=== PATIENT | female | born 1985 | race Caucasian/White ===

== ENCOUNTER 2020-08-11 16:18 | Emergency (ER) | payer MEDICAID ==
[~2020-08-11] VITALS: Ht 149.9 cm; Wt 61.2 kg
[2020-08-11 16:23] VITALS: BP 124/71
--- NOTE | 2020-08-11 16:32 | NUR ---
Patient ambulated with steady gait to bed 8.
--- NOTE | 2020-08-11 17:00 | NUR ---
35 YEAR OLD FEMALE COMPLAINS OF ABDOMINAL CRAMPING X 4 DAYS. PT STATES THAT SHE IS 7 WEEKS . PT DENIES ANY TISSUE DISCHARGE, DENIES DIZZINESS. PT AOX4, BREATHING EVEN AND UNLABORED, SKIN WARM AND DRY. BED IN LOWEST POSITION, LOCKED, BED RAIL UPX1. PMH - DENIES ALLERGIES - NKA
[2020-08-11 17:10] LABS: BASOPHILS # (AUTO) 0.2 K/uL (0.00-0.22); BASOPHILS % (AUTO) 2.2 % (0.0-2.0); EOSINOPHILS # (AUTO) 0.1 K/uL (0-0.4); EOSINOPHILS % (AUTO) 1.1 % (0.0-4.0); HEMATOCRIT 37.9 % (36-48); HEMOGLOBIN 12.8 g/dL (12.0-16.0); LYMPHOCYTES # (AUTO) 1.9 K/uL (2.5-16.5); LYMPHOCYTES % (AUTO) 25.4 % (20.5-51.1); MEAN CORPUSCULAR HEMOGLOBIN 29 pg (27-31); MEAN CORPUSCULAR HGB CONC 34 g/dL (33-37); MEAN CORPUSCULAR VOLUME 86.6 fL (80-94); MONOCYTES # (AUTO) 0.5 K/uL (0.8-1.0); MONOCYTES % (AUTO) 6.5 % (1.7-9.3); NEUTROPHILS # (AUTO) 4.9 K/uL (1.8-7.7); NEUTROPHILS % (AUTO) 64.8 % (42.2-75.2); PLATELET COUNT (AUTO) 239 K/uL (140-450); RED BLOOD CELL COUNT(AUTO) 4.38 MIL/uL (4.20-5.40); RED CELL DISTRIBUTION WIDTH 13.8 % (11.6-13.7); WHITE BLOOD COUNT (AUTO) 7.5 K/uL (4.8-10.8)
[2020-08-11 17:30] LABS: APPEARANCE,URINE SL CLOUDY (CLEAR); BILIRUBIN,URINE NEGATIVE (NEGATIVE); BLOOD, URINE 3+ (NEGATIVE); COLOR,URINE RED (YELLOW); LEUKOCYTE ESTERASE ,URINE NEGATIVE (NEGATIVE); NITRITE, URINE NEGATIVE (NEGATIVE); PH,URINE 6.5 (5.0-9.0); UGLUCOSE NEGATIVE (NEGATIVE)
[2020-08-11 17:52] LABS: RBC,URINE >100 /HPF (0-5); WBC,URINE 0-5 /HPF (0-5)
--- NOTE | 2020-08-11 18:07 | NUR ---
PT ALERT AND AWAKE, BREATHING EVEN AND UNLABORED. NO DISTRESS NOTED.
[2020-08-11 18:53] VITALS: BP 124/71
--- NOTE | 2020-08-11 18:53 | NUR ---
Patient discharged with v/s stable. Written and verbal after care instructions about threatened miscarriage given and explained. Patient verbalized understanding. Ambulatory with steady gait. All questions addressed prior to discharge. Advised to follow up with PMD.
== END 2020-08-11 18:53 | disposition home or self-care (01) ==
LOC: MED 16:18
DX: O20.0 Threatened abortion (principal)
CPT/HCPCS: 36415; 76817; 81001; 81025; 84702; 85025; 86900; 86901; 99284

== ENCOUNTER 2020-08-15 11:31 | Emergency (ER) | payer MEDICAID ==
[~2020-08-15] VITALS: Ht 149.9 cm; Wt 62.6 kg
[2020-08-15 11:37] VITALS: BP 114/71
[2020-08-15 14:45] VITALS: BP 114/71
== END 2020-08-15 14:45 | disposition home or self-care (01) ==
LOC: MED 11:31
DX: N93.9 Abnormal uterine and vaginal bleeding, unspecified (principal); R10.30 Lower abdominal pain, unspecified; R11.0 Nausea
CPT/HCPCS: 36415; 84702; 99283

== ENCOUNTER 2020-08-15 18:52 | Emergency (ER) | payer MEDICAID ==
[~2020-08-15] VITALS: Ht 149.9 cm; Wt 62.6 kg
[2020-08-15 19:06] VITALS: BP 116/72
--- NOTE | 2020-08-15 19:27 | NUR ---
PT BIB SELF FOR RECHECK. PT ARRIVED TO ER THIS MORNING FOR HCG LEVEL CHECK. PT REPORTING HCG LEVELS WENT DOWN. PTS OB RECOMMENDED SHE COME BACK TO ER FOR ULTRASOUND. PT REPORTS SHE IS 7-8 WEEKS . THIS IS HER 2ND , ONE LIVING CHILD. PT REPORTS BLEEDING AND PASSING CLOTS X 1 WEEK. PT DENIES ABDOMINAL CRAMPING AT THIS TIME. VSS. MED HX: DENIES ALLERGIES: NKA
--- NOTE | 2020-08-15 19:52 | NUR ---
ERMD AT BEDSIDE.
--- NOTE | 2020-08-15 20:10 | NUR ---
Ultrasound at bedside.
--- NOTE | 2020-08-15 20:22 | NUR ---
WITH PERMISSION FROM PT, PTS , JOSUE, UPDATED REGARDING ULTRASOUND AT BEDSIDE. NO RESULTS AT THIS TIME. HE VERBALIZED UNDERSTANDING.
--- NOTE | 2020-08-15 20:31 | NUR ---
PTS , JOSUE, BROUGHT BACK TO BEDSIDE.
--- NOTE | 2020-08-15 20:54 | NUR ---
ERMD AT BEDSIDE. PT REPORTS OB IS MD JOSÉ MIGUEL SEVERINO OF [facility].
[2020-08-15 22:04] VITALS: BP 98/61
--- NOTE | 2020-08-15 22:04 | NUR ---
Patient discharged with v/s stable. Written and verbal after care instructions given and explained. Patient verbalized understanding. Ambulatory with steady gait. All questions addressed prior to discharge. Advised to follow up with PMD. BY SIDE.
== END 2020-08-15 22:04 | disposition home or self-care (01) ==
LOC: MED 18:52
DX: O03.9 Complete or unspecified spontaneous abortion without complication (principal); O20.8 Other hemorrhage in early pregnancy; Z3A.01 Less than 8 weeks gestation of pregnancy
CPT/HCPCS: 76817; 99284